=== PATIENT | female | born 1985 | race Caucasian/White ===

== ENCOUNTER → 2019-07-24 | Day surgery (SDC) | payer OTHER ==
[~2019-07-24] MED LIST: NORCO 5-325 TA1 EAC1 PO; OMEPRAZOLE 20 M20 M1 PO
[2019-07-24 09:03] LABS: HEMOGLOBIN 14.4 gm/dL (12.0-15.0)
[2019-07-24 11:28] LABS: CALCIUM 8.6 mg/dL (8.5-10.1); CREATININE 0.8 mg/dL (0.6-1.3); POTASSIUM 4.1 mmol/L (3.5-5.1)
[2019-07-24 11:33] LABS: TOTAL BILIRUBIN 0.4 mg/dL (<0.1-1.0); TOTAL PROTEIN 7.8 g/dL (6.4-8.2)
--- NOTE | 2019-07-26 12:07 | PATH ---
[address] [address] PATHOLOGY RPT PROCEDURE Name: JODIE MENDIOLA Room: [facility].R.#: [id number] Admission: 07/24/19 Date of : 83 Discharge: Report #: [id number] Path Case #: [id number] [facility] Accession Number: [id number] . 01 Material submitted: . gallbladder - GALLBLADDER . 01 Clinical history: . Gallstones . 02 Diagnosis: Gallbladder: - Chronic cholecystitis and cholelithiasis. (AILIN/db; 07/26/2019) LBQ 07/26/2019 0943 Local . 02 Electronically signed: . Jerson Curran MD, Pathologist NPI- [id number] . 01 Gross description: . . The specimen is received in formalin, labeled "Jodie Mendiola, gallbladder" and consists of an intact purple gallbladder measuring 8.4 x 3.6 x 3.4 cm. The margin is inked. Opening reveals green bile and a packed lumen containing black multifaceted calculi measuring up to 0.5 cm in diameter. The mucosa is smooth and green with a wall thickness of 0.1 cm. No gross lesions or lymph nodes are identified. Regulatory Affairs Analyst sections are submitted in A1. (AYESHA; 07/24/2019) JFQ/JFQ 07/24/2019 2109 Local . 02 Pathologist provided ICD-10: K80.10 . 02 CPT . 838956 Specimen Comment: A courtesy copy of this report has been sent to [phone] Specimen Comment: [id number] Specimen Comment: Report sent to / DR SONI Performed at: [address] [id number] MD Donny Silva MD Phone: [phone] Performed at: [address] [address] [place], [place] [id number] [place] [address] PATHOLOGY RPT PROCEDURE Name: JODIE MENDIOLA Room: [facility].R.#: [id number] Admission: 07/24/19 Date of : 83 Discharge: Report #: [id number] Path Case #: [id number] MD Jerson Curran MD Phone: [phone]
--- NOTE | 2019-07-27 13:17 | OP ---
[facility] [address] [place] [address] OPERATIVE REPORT Name: SUSIEArabella REEVESАЛЕКСАНДР Room: [facility].#: [id number] Admission: 07/24/19 Attend Phys: Emery Gautam Discharge: Date of : 83 Report #: [id number] THIS REPORT FOR: //name// cc: Fina Nunez MD, Ghazal A. MD ~ THIS REPORT FOR: //name// CC: Fina Gautam DATE OF SERVICE: 07/24/2019 PREOPERATIVE DIAGNOSIS: Symptomatic cholelithiasis. POSTOPERATIVE DIAGNOSIS: Symptomatic cholelithiasis. OPERATION: Laparoscopic cholecystectomy. SURGEON: Emery Gautam MD ANESTHESIA: General. ESTIMATED BLOOD LOSS: Minimal. SPECIMEN: Gallbladder. DESCRIPTION OF PROCEDURE: After informed consent was obtained, the patient was brought to the operating room and placed supine. SCDs were placed and working, preoperative antibiotics were administered, general anesthesia was induced. The abdomen was prepped and draped in the usual sterile fashion. A 10 mm incision was made below the umbilicus. Fascia was incised and a trocar was placed. Pneumoperitoneum was established. Three right upper quadrant ports were placed under direct vision. Pneumoperitoneum was established. The gallbladder was grasped at the fundus and retracted cephalad. Infundibulum was grasped and retracted laterally. I dissected out the cystic duct and cystic artery. I dissected out the cystic plate. The cystic duct and artery were clipped and ligated leaving 2 clips on the remaining duct and one on the remaining artery. Gallbladder was then taken off the liver bed with electrocautery. It was placed into an Endopouch and removed. The fascia was then closed with a [id number]-[id number] 0 Vicryl. Skin was closed with 4-0 Monocryl. Incisions were sealed with Dermabond. COMPLICATIONS: [place] [address] OPERATIVE REPORT Name: JOSSY АЛЕКСАНДР REEVES [facility]: [facility]#: [id number] Admission: 07/24/19 Attend Phys: Emery Gautam Discharge: Date of : 83 Report #: [id number] DISPOSITION: The patient was taken to recovery in satisfactory condition. <ELECTRONICALLY SIGNED> By: Emery Gautam MD 07/27/19 1317 1240 [id number] Gautam MD /nt
== END | disposition home or self-care (01) ==
LOC: M.SUR 08:25
PROVIDERS: ATTEND Surgery
DX: K80.10 Calculus of gallbladder with chronic cholecystitis without obstruction (principal); E04.9 Nontoxic goiter, unspecified; K21.9 Gastro-esophageal reflux disease without esophagitis; F17.210 Nicotine dependence, cigarettes, uncomplicated; Z98.890 Other specified postprocedural states; Z11.59 Encounter for screening for other viral diseases; Z79.899 Other long term (current) drug therapy